=== PATIENT | male | born 1990 | race African-American/Black ===

== ENCOUNTER 2016-11-28 12:57 | Emergency (ER) | payer MEDICAID ==
[~2016-11-28] VITALS: Ht 180.3 cm; Wt 74.8 kg
[2016-11-28] MEDS ORDERED: COLACE100 MG ORAL (13:31)
[2016-11-28] MEDS ORDERED: TOPICAINE 5113 GM TP (13:31)
[2016-11-28 13:46] VITALS: BP 137/71
--- NOTE | 2016-11-29 12:28 | Emergency Room Report ---
History of Present Illness General Chief Complaint: Pain Source: Patient Present Illness HPI The pt is a 26 yo M who denies any medical hx presenting for rectal pain. He states that he has noticed bright red blood on toilet paper for the past week as well as pain with defecation. Described as 10/10 sharp sensation only with bowel movements. He denies radiating pain. He denies constipation, diarrhea, N, V, F, chills, abd pain, back pain, dysuria, melena, hematochezia Allergies: Coded Allergies: No Known Allergies (Unverified , 11/28/16) Patient History Past Medical History: see triage record Pertinent Family History: none Reviewed Nursing Documentation: PMH: Agreed, PSxH: Agreed Nursing Documentation-PMH Past Medical History: No History, Except For Hx Cardiac Problems: No - back spasms Review of Systems All Other Systems: negative except mentioned in HPI Physical Exam Vital Signs Date Time Temp Pulse Resp B/P Pulse Ox O2 Delivery O2 Flow Rate FiO2 11/28/16 13:01 98.2 65 16 146/64 96 Room Air Sp02 EP Interpretation: reviewed, normal General Appearance: no apparent distress, alert, GCS 15, non-toxic Head: normocephalic, atraumatic Eyes: bilateral eye PERRL, bilateral eye normal inspection ENT: hearing grossly normal, normal pharynx, no angioedema, normal voice Neck: full range of motion, supple/symm/no masses Gastrointestinal: normal bowel sounds, non tender, soft, no mass, non-distended , no guarding, no hernia, no rebound Rectal: normal rectal tone, hemorrhoids - internal Genitourinary: normal inspection, no CVA tenderness Musculoskeletal: back normal, gait/station normal, normal range of motion Neurologic: alert, oriented x3, responsive, motor strength/tone normal, sensory intact, normal gait, speech normal Psychiatric: judgement/insight normal, memory normal, mood/affect normal, no suicidal/homicidal ideation Skin: normal color, no rash, warm/dry, well hydrated Lymphatic: no adenopathy Medical Decision Making PA Attestation Dr. Martínez is my supervising physician. Patient management was discussed with my supervising physician Diagnostic Impression: Primary Impression: Internal hemorrhoid ER Course The pt is a 26 yo M presenting with rectal pain with defecation and bright red blood. DDx considered but not limited by: internal/external hemorrhoid, prolapse, hernia, among others. PE: NAD Normal rectal tone. No external hemorrhoids. There is an internal hemorrhoid noted. Non tender. The pt will be DC'ed home with prescription for lidocaine and Colace. ER precautions given Last Vital Signs Date Time Temp Pulse Resp B/P Pulse Ox O2 Delivery O2 Flow Rate FiO2 11/28/16 13:46 75 18 137/71 100 Room Air 11/28/16 13:01 98.2 Status: improved Disposition: HOME, SELF-CARE Condition: Improved Scripts Lidocaine (TOPICAINE 5) 113 Gm Gel..gram. 1 APPLIC TP Q4HR, #113 GM Prov: HENRRY PFEIFFER 11/28/16 Docusate Sodium* (COLACE*) 100 Mg Capsule 100 MG ORAL TWICE A DAY, #10 CAP Prov: HENRRY PFEIFFER 11/28/16 Referrals: NOT CHOSEN IPA/MD,REFERRING (PCP) Patient Instructions: Disposable Sitz Bath, Hemorrhoids Additional Instructions: I discussed my findings with the patient. All questions and concerns have been answered. Treatment and medication compliance have been addressed. I advised the patient that they need to follow up with PMD in 3-5 days. Return to ED if symptoms worsen, new symptoms arise, or if needed for any reason. Patient verbalized understanding of discharge instructions. HENRRY PFEIFFER Nov 29, 2016 12:28
== END 2016-11-28 14:00 | disposition home or self-care (01) ==
LOC: EMR 13:51
DX: K64.8 Other hemorrhoids (principal)
CPT/HCPCS: 99282